=== PATIENT | female | born 1975 | race Hispanic/Latino ===

== ENCOUNTER 2019-05-26 08:28 | Outpatient (CLI) | payer OTHER ==
--- NOTE | 2019-05-26 09:24 | RAD ---
RIGHT HAND THREE VIEWS: INDICATIONS: A 43-year-old female with chronic right hand pain without trauma. COMPARISON: None. FINDINGS: No acute fracture or subluxation is evident. Bone mineralization appears normal. Soft tissues are nor mal appearing. Joint spaces appear relatively well preserved. No radiopaque foreign body is demonstra linda. No periarticular erosions are noted. IMPRESSION: Normal radiographic evaluation of the right hand. POS: [facility]
[2019-05-26 10:38] LABS: ALT (SGPT) 62 U/L (8-55); AST (SGOT) 34 U/L (5-34); Albumin 4.1 g/dL (3.5-5.0); Alkaline Phosphatase 116 U/L (40-110); Anion Gap 15 mmol/L (10-20); BUN (Urea Nitrogen) 11 mg/dL (7.0-18.7); Bilirubin, Total 0.4 mg/dL (0.2-1.2); CK (CPK) 37 U/L (29-168); CRP (Inflammatory) 2.57 mg/dL (= or < 0.5); Calc. Creatinine Clearance 0 mL/min (70-130); Calcium 9.1 mg/dL (7.8-10.44); Carbon Dioxide 22 mmol/L (22-29); Cardiac Risk 3.5 (Less than 4.5); Chloride 107 mmol/L (98-107); Cholesterol 164 mg/dl (< 200 Desired); Estimated GFR-MDRD 87; Glucose 89 mg/dL (70-105); HDL Cholesterol 47 mg/dL (>60 Neg Risk); LDL Cholesterol, Calculated 102 mg/dL; Potassium 4.3 mmol/L (3.5-5.1); Protein, Total 7.1 g/dL (6.0-8.3); Sodium 140 mmol/L (136-145); Triglycerides 76 mg/dL (Less than 150); Uric Acid 4.8 mg/dL (2.6-6.0)
[2019-05-26 10:58] LABS: Thyroid Stimulating Hormone 0.9038 uIU/mL (0.35-4.94)
[2019-05-26 17:28] LABS: Free T4 (Free Thyroxine) 1.12 ng/dL (0.70-1.48)
[2019-05-26 17:30] LABS: Vitamin D, 25 Hydroxy 12.4 ng/ml (> 30.0)
[2019-05-28 14:17] LABS: ANA Symphony (Qualitative) Negative (Negative); ANA Symphony (Quantitative) 0.2 Ratio (< 0.7 Negative); CCP IgG Antibody 0.6 EliAU/mL (<7 Negative); EliA RAS New Method **** NEW METHOD ****; Rheumatoid Factor IgA Antibody 4.8 IU/mL (<14 Negative); dsDNA IgG Antibody 1.5 IU/mL (<10 Negative)
== END 2019-05-26 08:29 | disposition home or self-care (01) ==
LOC: MADLAB 08:28
PROVIDERS: ATTEND Family Medicine
DX: M79.641 Pain in right hand (principal); Z00.00 Encounter for general adult medical examination without abnormal findings; Z13.220 Encounter for screening for lipoid disorders; E03.9 Hypothyroidism, unspecified; E88.81 Metabolic syndrome and other insulin resistance; Z68.34 Body mass index [BMI] 34.0-34.9, adult
CPT/HCPCS: 36415; 80053; 80061; 82306; 82550; 83036; 83520; 84439; 84443; 84550; 85652; 86038; 86140; 86200; 86225

== ENCOUNTER 2019-06-16 14:58 | Outpatient (CLI) | payer OTHER ==
--- NOTE | 2019-06-16 15:26 | RAD ---
Exam: Single view of the pelvis HISTORY: Malposition of intrauterine contraceptive device COMPARISON: None FINDINGS: A single view the pelvis shows no evidence of acute fracture or dislocation. An IUD is seen in the pelvis. No degenerative changes seen in either hip. IMPRESSION: IUD located in the pelvis.
[2019-06-16 22:48] LABS: HBCM Index 0.06 S/CO (0-0.79); HBSAg Index 0.18 S/CO (0-0.99); Hep A IgM AB Non-Reactive (NonReactive); Hep A IgM S/CO 0.32 S/CO (0-0.79); Hep B Surf Ag Non-Reactive S/CO (NonReactive); Hep C IgG Ab Non-Reactive (NonReactive); Hepatitis B Core IgM Abs Non-Reactive (NonReactive)
== END 2019-06-16 14:59 | disposition home or self-care (01) ==
LOC: MADLAB 14:58
PROVIDERS: ATTEND Family Medicine
DX: T83.32XD Displacement of intrauterine contraceptive device, subsequent encounter (principal); R79.82 Elevated C-reactive protein (CRP); R74.8 Abnormal levels of other serum enzymes; Z97.5 Presence of (intrauterine) contraceptive device
CPT/HCPCS: 36415; 72170; 80074; 82977; 83520; 86038; 86200; 86225

== ENCOUNTER 2020-09-25 12:20 | Outpatient (CLI) | payer OTHER | END 2020-09-25 12:21 | disposition home or self-care (01) | LOC: MADRAD 12:20 | PROVIDERS: ATTEND Internal Medicine Rheumatology | DX: M25.561 Pain in right knee (principal); M25.562 Pain in left knee; M79.641 Pain in right hand; M79.642 Pain in left hand; G89.29 Other chronic pain; M22.2X2 Patellofemoral disorders, left knee ==

== ENCOUNTER 2023-09-30 17:08 | Emergency (ER) | payer BC | END 2023-09-30 18:14 | disposition home or self-care (01) | LOC: MADERS 17:08 | DX: S93.432A Sprain of tibiofibular ligament of left ankle, initial encounter (principal); W18.30XA Fall on same level, unspecified, initial encounter ==